=== PATIENT | female | born 1995 | race Caucasian/White ===

== ENCOUNTER 2019-07-22 13:15 | Observation (INO) | payer OTHER ==
[~2019-07-22] VITALS: Ht 1.5 cm; Wt 72.6 kg
[2019-07-22] MEDS ORDERED: PREN-380 PO (14:27)
[2019-07-22] MEDS ORDERED: BETAMETH ACET/BETAMETH NA PH 30 MG/5 ML VIAL IM PRN (14:30)
[2019-07-22] MEDS ORDERED: LACTATED RINGERS 1,000 ML IV SCH (14:30)
[2019-07-22] MEDS: TERBUTALINE 1 MG/ML VIAL SUBQ SCH ×2 (15:50→16:51)
[2019-07-22] MEDS ORDERED: MORPHINE SULFATE 2 MG/ML SYR IVP SCH (18:35)
[2019-07-22] MEDS ORDERED: FERR-252 PO (18:42)
[2019-07-22] MEDS ORDERED: CALC-577 PO (18:42)
== END 2019-07-22 20:20 | disposition home or self-care (01) ==
LOC: MLD 13:15
PROVIDERS: ADMIT Obstetrics & Gynecology; ATTEND Obstetrics & Gynecology
DX: O26.893 Other specified pregnancy related conditions, third trimester (principal); R10.9 Unspecified abdominal pain; Z3A.28 28 weeks gestation of pregnancy
CPT/HCPCS: 36415; 76805; 82731; 96372; G0378; J0702; J3105; J7120; Q0092

== ENCOUNTER 2019-07-23 16:33 | Observation (INO) | payer OTHER ==
[~2019-07-23] VITALS: Ht 157.5 cm; Wt 69.9 kg
[~2019-07-23 16:33] MED LIST: CALC-577 PO; FERR-252 PO; PREN-380 PO
[2019-07-23 17:20] VITALS: BP 102/65
[2019-07-23] MEDS ORDERED: BETAMETH ACET/BETAMETH NA PH 30 MG/5 ML VIAL IM ONE ×2 (17:25→17:40)
== END 2019-07-23 18:30 | disposition home or self-care (01) ==
LOC: MLD 16:33
PROVIDERS: ADMIT Obstetrics & Gynecology; ATTEND Obstetrics & Gynecology
DX: O26.893 Other specified pregnancy related conditions, third trimester (principal); R10.9 Unspecified abdominal pain; Z3A.29 29 weeks gestation of pregnancy
CPT/HCPCS: 81000; 96372; G0378; J0702

== ENCOUNTER 2019-08-24 23:37 | Observation (INO) | payer MEDICAID ==
[~2019-08-24] VITALS: Ht 152 cm; Wt 71.7 kg
[2019-08-25 00:18] VITALS: BP 95/68
[2019-08-25] MEDS ORDERED: TERBUTALINE 1 MG/ML VIAL SUBQ SCH (01:05)
[2019-08-25] MEDS ORDERED: MORPHINE SULFATE 4 MG/ML SYR IVP PRN (01:05)
[2019-08-25] MEDS ORDERED: VITA1TAB44 PO (01:11)
[2019-08-25] MEDS: LACTATED RINGERS 1,000 ML IV SCH ×2 (01:28→08:41)
[2019-08-25] MEDS ORDERED: TERBUTALINE 1 MG/ML VIAL SUBQ ONE (01:30)
[2019-08-25] MEDS ORDERED: MORPHINE SULFATE 10 MG/ML VIAL ONE (06:09)
[2019-08-25 06:15] VITALS: BP 94/63
--- NOTE | 2019-08-25 09:00 | NUR ---
PATIENT HAS BEEN SCREENED AND CATEGORIZED LOW NUTRITION RISK. PATIENT WILL BE SEEN WITHIN 7 DAYS OF ADMISSION. 08/31/[address]
[2019-08-25] MEDS ORDERED: ONDANSETRON 4 MG/2 ML VIAL IVP PRN (10:45)
== END 2019-08-25 16:45 | disposition home or self-care (01) ==
LOC: MLD 23:37 → MFCC 08-25 10:01
PROVIDERS: ADMIT Obstetrics & Gynecology; ATTEND Obstetrics & Gynecology
DX: O62.9 Abnormality of forces of labor, unspecified (principal); Z3A.33 33 weeks gestation of pregnancy
CPT/HCPCS: 81000; 96372; 96374; G0378; J2270; J2405; J7120; J3105

== ENCOUNTER 2019-09-03 22:45 | Inpatient (IN) | payer MEDICAID ==
[~2019-09-03] VITALS: Ht 149.9 cm; Wt 72.6 kg
[~2019-09-03 22:45] MED LIST changes: -CALC-577 PO; +VITA1TAB44 PO
[2019-09-03] MEDS ORDERED: BETAMETH ACET/BETAMETH NA PH 30 MG/5 ML VIAL IM SCH (23:40)
[2019-09-03] MEDS ORDERED: MORPHINE SULFATE 4 MG/ML SYR IVP PRN (23:40)
[2019-09-03] MEDS ORDERED: TERBUTALINE 1 MG/ML VIAL SUBQ SCH (23:40)
[2019-09-04] MEDS ORDERED: BETAMETH ACET/BETAMETH NA PH 30 MG/5 ML VIAL IM ONE (00:32)
[2019-09-04] MEDS ORDERED: TERBUTALINE 1 MG/ML VIAL SUBQ ONE (00:32)
[2019-09-04 02:51] VITALS: BP 100/59
[2019-09-04] MEDS ORDERED: NIFEdipine 10 MG CAPLF ONE (06:55)
[2019-09-04] MEDS: NIFEdipine 10 MG CAPLF PO SCH ×7 (06:59→20:10)
[2019-09-04] MEDS: LACTATED RINGERS 1,000 ML IV SCH ×2 (07:58→15:56)
--- NOTE | 2019-09-04 08:52 | NUR ---
PATIENT HAS BEEN SCREENED AND CATEGORIZED LOW NUTRITION RISK. PATIENT WILL BE SEEN WITHIN 7 DAYS OF ADMISSION. 09/10/[address]
[2019-09-04] MEDS ORDERED: MORPHINE SULFATE 10 MG/ML VIAL ONE (12:54)
[2019-09-04 13:03] VITALS: BP 108/60
[2019-09-04 17:07] LABS: BASOPHILS % (AUTO) 0.6 % (0.0-2.0); HEMATOCRIT 30.2 % (36-48); HEMOGLOBIN 9.9 g/dL (12.0-16.0); LYMPHOCYTES # (AUTO) 1.2 K/uL (2.5-16.5); LYMPHOCYTES % (AUTO) 14.5 % (20.5-51.1); MEAN CORPUSCULAR HEMOGLOBIN 27 pg (27-31); MEAN CORPUSCULAR HGB CONC 33 g/dL (33-37); MEAN CORPUSCULAR VOLUME 82.6 fL (80-94); MONOCYTES # (AUTO) 0.3 K/uL (0.8-1.0); MONOCYTES % (AUTO) 4.2 % (1.7-9.3); NEUTROPHILS # (AUTO) 6.4 K/uL (1.8-7.7); NEUTROPHILS % (AUTO) 80.7 % (42.2-75.2); PLATELET COUNT (AUTO) 251 K/uL (140-450); RED BLOOD CELL COUNT(AUTO) 3.66 MIL/uL (4.20-5.40); RED CELL DISTRIBUTION WIDTH 15.6 % (11.6-13.7)
[2019-09-04 20:37] LABS: BARBITURATE, URINE NEGATIVE ng/ml (NEG <=200); BENZODIAZEPINE, URINE NEGATIVE ng/mL (NEG <=200); CANNABINOID, URINE NEGATIVE ng/mL (NEG <=50); COCAINE, URINE NEGATIVE ng/mL (NEG <=300); OPIATE, URINE POSITIVE ng/mL (NEG <=2000); PHENCYCLIDINE SCREEN,URINE NEGATIVE ng/mL (NEG <=25)
[2019-09-05] MEDS: NIFEdipine 10 MG CAPLF PO SCH ×2 (00:10→04:11)
[2019-09-05] MEDS: LACTATED RINGERS 1,000 ML IV SCH ×2 (01:38→10:36)
[2019-09-05 10:40] LABS: APPEARANCE,URINE CLEAR (CLEAR); BILIRUBIN,URINE NEGATIVE (NEGATIVE); BLOOD, URINE NEGATIVE (NEGATIVE); COLOR,URINE YELLOW (YELLOW); LEUKOCYTE ESTERASE ,URINE NEGATIVE (NEGATIVE); NITRITE, URINE NEGATIVE (NEGATIVE); UGLUCOSE NEGATIVE (NEGATIVE)
[2019-09-05 11:13] LABS: BARBITURATE, URINE NEGATIVE ng/ml (NEG <=200); BENZODIAZEPINE, URINE NEGATIVE ng/mL (NEG <=200); CANNABINOID, URINE NEGATIVE ng/mL (NEG <=50); COCAINE, URINE NEGATIVE ng/mL (NEG <=300); OPIATE, URINE POSITIVE ng/mL (NEG <=2000); PHENCYCLIDINE SCREEN,URINE NEGATIVE ng/mL (NEG <=25)
[2019-09-05] MEDS ORDERED: MORPHINE PRES FREE 10 MG/10 ML AMP IV ONE (13:39)
[2019-09-05] MEDS ORDERED: ONDANSETRON 4 MG/2 ML VIAL ONE ×2 (13:40→14:11)
[2019-09-05] MEDS ORDERED: OXYTOCIN 10 UNITS/ML VIAL ONE (14:09)
[2019-09-05] MEDS ORDERED: diphenhydrAMINE 50 MG/ML VIAL ONE (14:11)
[2019-09-05] MEDS ORDERED: OXYTOCIN 20 UNITS in LACTATED RINGERS 1,000 ML IV SCH ×2 (14:23→15:47)
[2019-09-05] MEDS ORDERED: IBUPROFEN 800 MG TAB PO PRN (14:25)
[2019-09-05] MEDS ORDERED: TEMAZEPAM 15 MG CAP PO PRN (14:25)
[2019-09-05] MEDS ORDERED: METHYLERGONOVINE 0.2 MG/ML AMP IM PRN (14:25)
[2019-09-05] MEDS ORDERED: KETOROLAC 30 MG/ML VIAL IVP PRN ×2 (14:25→15:50)
[2019-09-05] MEDS ORDERED: OXYTOCIN 20 UNITS/LR PREMIX 1,000 ML IV ONE ×2 (14:33→22:00)
[2019-09-05] MEDS ORDERED: diphenhydrAMINE 50 MG/ML VIAL IVP PRN (15:50)
[2019-09-05] MEDS ORDERED: ONDANSETRON 4 MG/2 ML VIAL IVP PRN (15:50)
[2019-09-05] MEDS ORDERED: diphenhydrAMINE 50 MG/ML VIAL IVP SCH (15:50)
[2019-09-05] MEDS ORDERED: NALOXONE 0.4 MG/ML VIAL IVP PRN ×2 (15:50)
[2019-09-05] MEDS: SENNA 8.6 MG TAB PO SCH (21:00)
[2019-09-05] MEDS ORDERED: DOCUSATE SOD/SENNA 50/8.6 MG 1 TAB PO SCH (21:00)
[2019-09-05] MEDS ORDERED: OXYTOCIN 20 UNITS/LR PREMIX 1,000 ML IV SCH (22:40)
[2019-09-06 05:53] LABS: BASOPHILS % (AUTO) 0.1 % (0.0-2.0); HEMATOCRIT 27.3 % (36-48); LYMPHOCYTES # (AUTO) 1.8 K/uL (2.5-16.5); LYMPHOCYTES % (AUTO) 18.8 % (20.5-51.1); MEAN CORPUSCULAR HEMOGLOBIN 27 pg (27-31); MEAN CORPUSCULAR HGB CONC 33 g/dL (33-37); MEAN CORPUSCULAR VOLUME 82.5 fL (80-94); MONOCYTES # (AUTO) 0.8 K/uL (0.8-1.0); NEUTROPHILS # (AUTO) 7.1 K/uL (1.8-7.7); NEUTROPHILS % (AUTO) 73.1 % (42.2-75.2); PLATELET COUNT (AUTO) 226 K/uL (140-450); RED BLOOD CELL COUNT(AUTO) 3.31 MIL/uL (4.20-5.40); RED CELL DISTRIBUTION WIDTH 15.4 % (11.6-13.7); WHITE BLOOD COUNT (AUTO) 9.7 K/uL (4.8-10.8)
[2019-09-06] MEDS: oxyCODONE/APAP 5/325 MG 1 TAB TAB PO PRN ×2 (12:44→20:09)
[2019-09-06] MEDS: SENNA 8.6 MG TAB PO SCH (20:09)
[2019-09-07] MEDS ORDERED: CAMERA MC ONE (02:06)
[2019-09-07] MEDS: SIMETHICONE 80 MG TAB.CHEW PO PRN ×2 (09:23→17:54)
[2019-09-07] MEDS: SODIUM PHOSPHATE 118 ML ENEM RC SCH (09:28)
[2019-09-07] MEDS: oxyCODONE/APAP 5/325 MG 1 TAB TAB PO PRN ×2 (10:44→17:54)
[2019-09-07] MEDS: SENNA 8.6 MG TAB PO SCH (21:02)
[2019-09-08] MEDS ORDERED: CAMERA MC ONE (03:03)
[2019-09-08] MEDS: oxyCODONE/APAP 5/325 MG 1 TAB TAB PO PRN ×2 (03:20→09:40)
[2019-09-08] MEDS: SODIUM PHOSPHATE 118 ML ENEM RC SCH (09:00)
== END 2019-09-08 17:00 | disposition home or self-care (01) | DRG 540 ==
LOC: MFCC 22:45 → OBSVTOIN 09-05 11:42 → MFCC 09-05 13:15
PROVIDERS: ADMIT Obstetrics & Gynecology; ATTEND Obstetrics & Gynecology
PROC: 3E0234Z Introduction of Serum, Toxoid and Vaccine into Muscle, Percutaneous Approach (ICD-10-PCS; 2019-09-05)
PROC: 10D00Z1 Extraction of Products of Conception, Low, Open Approach (ICD-10-PCS; principal; 2019-09-05 13:15)
DX: O60.14X0 Preterm labor third trimester with preterm delivery third trimester, not applicable or unspecified (principal); O34.211 Maternal care for low transverse scar from previous cesarean delivery; Z37.0 Single live birth; Z3A.35 35 weeks gestation of pregnancy; Z23 Encounter for immunization
CPT/HCPCS: G0378 ×37; 36415; 51702; 80305; 85025; 86592; 86886; 86900; 86901; 90715; J0690; J0702; J1200; J1885; J2270; J2405; J2590; J3105; J7060; J7120

== ENCOUNTER 2019-12-12 21:59 | Emergency (ER) | payer MEDICAID ==
[~2019-12-12] VITALS: Ht 132.1 cm; Wt 65.8 kg
[2019-12-12 22:04] VITALS: BP 95/61
--- NOTE | 2019-12-12 22:17 | NUR ---
PT AMBULATED TO BED 11.
--- NOTE | 2019-12-12 22:28 | NUR ---
24 year old female presents to ed with c/o n/v x 1 day, headache & dizziness x 15 days, c/o epigastric pain x 2 days. denies any blurry vision. pt is a/o x 4, gcs 15. denies LOC. cbl sounds. respirations even and unlabored. denies sob/cough .abdomen soft and nontender. bowel sounds normoactive on all quadrants. denies any diarrhea. pt is ambulatory. awaiting MSE. connected to cardiac monitoring, pulse oximetry monitoring. pmhx: denies nka
--- NOTE | 2019-12-12 22:38 | NUR ---
Dr. Guerrero at bedside assessing pt.
[2019-12-12] MEDS ORDERED: ONDANSETRON 4 MG/2 ML VIAL IVP ONE (22:45)
[2019-12-12] MEDS ORDERED: IBUPROFEN 600 MG TAB PO ONE (22:50)
[2019-12-12 23:33] VITALS: BP 101/53
--- NOTE | 2019-12-12 23:54 | NUR ---
Patient discharged with v/s stable. Written and verbal after care instructions given and explained. Patient alert, oriented and verbalized understanding of instructions. Ambulatory with steady gait. All questions addressed prior to discharge. ID band removed. Patient advised to follow up with PMD. Rx of zofran and motrin given. Patient educated on indication of medication including possible reaction and side effects. Opportunity to ask questions provided and answered.
== END 2019-12-12 23:54 | disposition home or self-care (01) ==
LOC: MED 21:59
DX: B34.9 Viral infection, unspecified (principal); E86.0 Dehydration; R11.2 Nausea with vomiting, unspecified; Z79.899 Other long term (current) drug therapy
CPT/HCPCS: 81002; 81025; 96374; 99283; J2405

== ENCOUNTER 2019-12-20 18:55 | Emergency (ER) | payer MEDICAID ==
[~2019-12-20] VITALS: Ht 154.9 cm; Wt 66.2 kg
[2019-12-20 18:57] VITALS: BP 107/62
--- NOTE | 2019-12-20 19:13 | NUR ---
24 Y/O FEMALE C/O LOWER ABDOMINAL PAIN. STATES 9/10 PAIN. +N/V. SEEN HERE 1 WEEK AGO SAME S/S. DENIES DYSURIA. ABD SOFT, TENDER TO TOUCH. MED HX: DENIES NKA
--- NOTE | 2019-12-20 19:33 | NUR ---
Dr. Cordoba examining patient.
[2019-12-20] MEDS ORDERED: KETOROLAC 30 MG/ML VIAL ONE (19:43)
[2019-12-20] MEDS ORDERED: KETOROLAC 30 MG/ML VIAL IM ONE (19:45)
--- NOTE | 2019-12-20 20:13 | NUR ---
Ultrasound at bedside.
[2019-12-20 21:56] VITALS: BP 104/58
--- NOTE | 2019-12-20 21:56 | NUR ---
Patient discharged with v/s stable. Written and verbal after care instructions given and explained. Patient alert, oriented and verbalized understanding of instructions. Ambulatory with steady gait. All questions addressed prior to discharge. ID band removed. Patient advised to follow up with PMD. Rx of tramadol, motrin given. Patient educated on indication of medication including possible reaction and side effects. Opportunity to ask questions provided and answered.
== END 2019-12-20 21:56 | disposition home or self-care (01) ==
LOC: MED 18:55
DX: N83.201 Unspecified ovarian cyst, right side (principal); Z79.899 Other long term (current) drug therapy; Z98.890 Other specified postprocedural states
CPT/HCPCS: 76856; 96372; 99284; J1885; Q0092

== ENCOUNTER 2019-12-22 18:11 | Emergency (ER) | payer MEDICAID ==
[~2019-12-22] VITALS: Ht 154.9 cm; Wt 67.1 kg
[2019-12-22 18:18] VITALS: BP 107/62
--- NOTE | 2019-12-22 18:32 | NUR ---
W/C TO BED 4
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
[2019-12-22] MEDS ORDERED: NACL 0.9% 1,000 ML IV SCH (18:58)
[2019-12-22] MEDS ORDERED: ONDANSETRON 4 MG/2 ML VIAL IVP ONE (19:00)
--- NOTE | 2019-12-22 19:05 | NUR ---
RECEIVED REPORT FROM PENNY CHAVARRIA
--- NOTE | 2019-12-22 19:26 | NUR ---
LAB AT BEDSIDE DRAWING BLOOD AND COLLECTED URINE
[2019-12-22] MEDS ORDERED: PROCHLORPERAZINE 10 MG/2 ML VIAL IM ONE (19:35)
[2019-12-22] MEDS ORDERED: MECLIZINE 25 MG TAB PO ONE (19:35)
[2019-12-22 19:37] LABS: BASOPHILS % (AUTO) 0.4 % (0.0-2.0); EOSINOPHILS # (AUTO) 0.1 K/uL (0-0.4); EOSINOPHILS % (AUTO) 0.9 % (0.0-4.0); HEMATOCRIT 34.6 % (36-48); HEMOGLOBIN 11.2 g/dL (12.0-16.0); LYMPHOCYTES # (AUTO) 1.8 K/uL (2.5-16.5); LYMPHOCYTES % (AUTO) 19.3 % (20.5-51.1); MEAN CORPUSCULAR HEMOGLOBIN 27 pg (27-31); MEAN CORPUSCULAR HGB CONC 32 g/dL (33-37); MONOCYTES # (AUTO) 0.7 K/uL (0.8-1.0); MONOCYTES % (AUTO) 7.2 % (1.7-9.3); NEUTROPHILS # (AUTO) 6.8 K/uL (1.8-7.7); NEUTROPHILS % (AUTO) 72.2 % (42.2-75.2); PLATELET COUNT (AUTO) 319 K/uL (140-450); RED BLOOD CELL COUNT(AUTO) 4.17 MIL/uL (4.20-5.40); RED CELL DISTRIBUTION WIDTH 17.1 % (11.6-13.7); WHITE BLOOD COUNT (AUTO) 9.5 K/uL (4.8-10.8)
[2019-12-22 19:38] LABS: APPEARANCE,URINE HAZY (CLEAR); BILIRUBIN,URINE NEGATIVE (NEGATIVE); BLOOD, URINE NEGATIVE (NEGATIVE); COLOR,URINE YELLOW (YELLOW); LEUKOCYTE ESTERASE ,URINE NEGATIVE (NEGATIVE); NITRITE, URINE NEGATIVE (NEGATIVE); UGLUCOSE NEGATIVE (NEGATIVE)
[2019-12-22 19:50] LABS: ANION GAP 14.3 (8-16); CARBON DIOXIDE 25.8 mmol/L (21-32); CREATININE 0.5 mg/dL (0.6-1.3); POTASSIUM 4.1 mmol/L (3.5-5.1); TOTAL BILIRUBIN 0.3 mg/dL (0.0-1.0)
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
--- NOTE | 2019-12-22 21:30 | NUR ---
PT WAS TOLD TO RETURN IN 48 HRS FOR REDRAW OF SERUM TO SEE IF IT IS GOING DOWN.
[2019-12-22 21:44] VITALS: BP 105/62
--- NOTE | 2019-12-22 21:45 | NUR ---
Patient discharged with v/s stable. Written and verbal after care instructions given and explained. Patient alert, oriented and verbalized understanding of instructions. Ambulatory with steady gait. All questions addressed prior to discharge. ID band removed. Patient advised to follow up with PMD. Rx of ANTIVERT AND ZOFRAN given. Patient educated on indication of medication including possible reaction and side effects. Opportunity to ask questions provided and answered.
== END 2019-12-22 21:45 | disposition home or self-care (01) ==
LOC: MED 18:11
DX: R42 Dizziness and giddiness (principal); R11.0 Nausea; Z79.899 Other long term (current) drug therapy
CPT/HCPCS: 36415; 80053; 81003; 83690; 84702; 84703; 85025; 96361; 96372; 96374; 99284; J0780; J2405; J7030; J8597

== ENCOUNTER 2019-12-25 20:07 | Emergency (ER) | payer MEDICAID ==
[~2019-12-25] VITALS: Ht 151.1 cm; Wt 66.7 kg
[2019-12-25 20:15] VITALS: BP 102/60
--- NOTE | 2019-12-25 20:20 | NUR ---
Admitted a 24-year-old Female who presents to the ED for an evaluation of right lower abdominal pain x 4 days. The abdominal pain is rated 5/10 intensity. Otherwise, the patient denies fever, chills, nausea, vomiting, or any other complaints. Per pt she had 3 months ago. Last LMP August 2019. ALLERGY: NKDA PMH: 3 MONTHS AGO
--- NOTE | 2019-12-25 20:41 | NUR ---
Dr. Guerrero examining patient.
[2019-12-25 21:11] LABS: APPEARANCE,URINE HAZY (CLEAR); BILIRUBIN,URINE NEGATIVE (NEGATIVE); BLOOD, URINE NEGATIVE (NEGATIVE); COLOR,URINE YELLOW (YELLOW); LEUKOCYTE ESTERASE ,URINE NEGATIVE (NEGATIVE); NITRITE, URINE NEGATIVE (NEGATIVE); PH,URINE 7.5 (5.0-9.0); UGLUCOSE NEGATIVE (NEGATIVE)
[2019-12-25 21:12] LABS: BASOPHILS % (AUTO) 0.3 % (0.0-2.0); EOSINOPHILS # (AUTO) 0.2 K/uL (0-0.4); EOSINOPHILS % (AUTO) 2.4 % (0.0-4.0); HEMATOCRIT 34.9 % (36-48); HEMOGLOBIN 11.4 g/dL (12.0-16.0); LYMPHOCYTES # (AUTO) 2.1 K/uL (2.5-16.5); LYMPHOCYTES % (AUTO) 26.5 % (20.5-51.1); MEAN CORPUSCULAR HEMOGLOBIN 27 pg (27-31); MEAN CORPUSCULAR HGB CONC 33 g/dL (33-37); MEAN CORPUSCULAR VOLUME 82.3 fL (80-94); MONOCYTES # (AUTO) 0.7 K/uL (0.8-1.0); MONOCYTES % (AUTO) 8.6 % (1.7-9.3); NEUTROPHILS # (AUTO) 4.8 K/uL (1.8-7.7); NEUTROPHILS % (AUTO) 62.2 % (42.2-75.2); PLATELET COUNT (AUTO) 333 K/uL (140-450); RED BLOOD CELL COUNT(AUTO) 4.24 MIL/uL (4.20-5.40); RED CELL DISTRIBUTION WIDTH 17.1 % (11.6-13.7); WHITE BLOOD COUNT (AUTO) 7.8 K/uL (4.8-10.8)
[2019-12-25 21:24] LABS: ALBUMIN 3.8 g/dL (3.4-5.0); ANION GAP 11.3 (8-16); CARBON DIOXIDE 27.5 mmol/L (21-32); CREATININE 0.5 mg/dL (0.6-1.3); POTASSIUM 3.8 mmol/L (3.5-5.1); TOTAL BILIRUBIN 0.2 mg/dL (0.0-1.0)
--- NOTE | 2019-12-25 21:31 | NUR ---
ULTRASOUND AT THE BEDSIDE
--- NOTE | 2019-12-25 22:00 | NUR ---
PT LAYING IN BED ON HER PHONE. NO COMPLAIN AT THIS TIME.
[2019-12-25 23:30] VITALS: BP 96/56
== END 2019-12-25 23:30 | disposition home or self-care (01) ==
LOC: MED 20:07
DX: O26.891 Other specified pregnancy related conditions, first trimester (principal); Z79.899 Other long term (current) drug therapy; Z98.890 Other specified postprocedural states
CPT/HCPCS: 36415; 76817; 80053; 81003; 81025; 83690; 84702; 85025; 86140; 99284; Q0092

== ENCOUNTER 2020-03-01 13:29 | Emergency (ER) | payer MEDICAID ==
[~2020-03-01] VITALS: Ht 149.9 cm; Wt 64.6 kg
[2020-03-01 13:30] VITALS: BP 112/61
--- NOTE | 2020-03-01 13:48 | NUR ---
24 y/o A&OX4 female c/o lower abdominal pain 12/24 describes as sharp constant X1day radiates from abdomen to lower back. Pt states she fell yesterday in the shower, denies head trauma, patient is 19 weeks . The LMP is 10/26/19 with BRANDON 07/26/20. Pt denies fever, +chills, dizziness+N/[id number]. Pt states she took tynenol X2 last night with no relief. Pt does not have an OB, has not taken prenatals. [id number] (1stillborn) Denies PMH Rx: Denies prenatals
--- NOTE | 2020-03-01 13:49 | NUR ---
Ambulated to bed 7
--- NOTE | 2020-03-01 13:50 | NUR ---
Pt ambulated to bathroom for UA collection.
--- NOTE | 2020-03-01 13:52 | NUR ---
evaluating the pt at this time.
--- NOTE | 2020-03-01 14:15 | NUR ---
Dr. Eagle at pt bedside for further evaluation.
[2020-03-01] MEDS ORDERED: ACETAMINOPHEN 325 MG TAB PO ONE (14:20)
[2020-03-01] MEDS ORDERED: ONDANSETRON 4 MG ODT PO ONE (14:20)
--- NOTE | 2020-03-01 14:27 | NUR ---
U/S tech at pt bedside for transvaginal examination.
[2020-03-01 16:08] VITALS: BP 112/61
--- NOTE | 2020-03-01 16:08 | NUR ---
Patient discharged with v/s stable. Written and verbal after care instructions given and explained. Patient alert, oriented and verbalized understanding of instructions. Ambulatory with steady gait. All questions addressed prior to discharge. ID band removed. Patient advised to follow up with PMD. Rx of diclegis 10mg 2 tabs at nnight PRN given. Patient educated on indication of medication including possible reaction and side effects. Opportunity to ask questions provided and answered.
== END 2020-03-01 16:08 | disposition home or self-care (01) ==
LOC: MED 13:29
DX: O26.892 Other specified pregnancy related conditions, second trimester (principal); S39.92XA Unspecified injury of lower back, initial encounter; S93.401A Sprain of unspecified ligament of right ankle, initial encounter; Z3A.15 15 weeks gestation of pregnancy; Z79.899 Other long term (current) drug therapy; Z90.49 Acquired absence of other specified parts of digestive tract; Z98.890 Other specified postprocedural states; X50.1XXA Overexertion from prolonged static or awkward postures, initial encounter; Y93.89 Activity, other specified; Y92.89 Other specified places as the place of occurrence of the external cause; Y99.8 Other external cause status
CPT/HCPCS: 76805; 81002; 81025; 99284; Q0162

== ENCOUNTER 2020-03-07 20:08 | Emergency (ER) | payer MEDICAID ==
[~2020-03-07] VITALS: Ht 157.5 cm; Wt 65.3 kg
[2020-03-07 20:18] VITALS: BP 114/66
--- NOTE | 2020-03-07 22:29 | NUR ---
Patient being evaluated by physician at tent.
[2020-03-07] MEDS ORDERED: KETOROLAC 60 MG/2 ML VIAL IM ONE (22:35)
[2020-03-07] MEDS ORDERED: ACETAMINOPHEN EXTRA STRENGTH 500 MG TAB PO ONE (22:45)
--- NOTE | 2020-03-07 22:45 | NUR ---
medicated as per Ermds order, tolerated well.
[2020-03-07 23:00] VITALS: BP 110/65
--- NOTE | 2020-03-07 23:00 | NUR ---
Patient discharged with v/s stable. Written and verbal after care instructions given and explained. Patient alert, oriented and verbalized understanding of instructions. Ambulatory with steady gait. All questions addressed prior to discharge. ID band removed. Patient advised to follow up with PMD. Rx of tylenol 500mg given. Patient educated on indication of medication including possible reaction and side effects. Opportunity to ask questions provided and answered.
== END 2020-03-07 23:00 | disposition home or self-care (01) ==
LOC: MED 20:08
DX: B34.9 Viral infection, unspecified (principal); Z79.899 Other long term (current) drug therapy
CPT/HCPCS: 99282; J1885

== ENCOUNTER 2020-03-29 08:14 | Emergency (ER) | payer MEDICAID, OTHER ==
[~2020-03-29] VITALS: Ht 157.5 cm; Wt 65.8 kg
[2020-03-29 08:33] VITALS: BP 95/50
--- NOTE | 2020-03-29 08:35 | NUR ---
Eve love in ED - 03/29/20 at 0903 by [email or web address] Pt taken to ER bed 11.
--- NOTE | 2020-03-29 08:35 | NUR ---
Pt taken to ER bed 12.
--- NOTE | 2020-03-29 08:54 | NUR ---
24 Y/O PT C/O PROGRESSIVELY WORSENING CONSTANT RUQ ABDOMINAL PAIN, CHILLS, AND WEAKNESS FOR 3 WEEKS. PT WAS SEEN IN [facility] LAST WEEK AND TESTED FOR COVID WITH NEGATIVE RESULT. DENIES FEVER, COUGH, SOB, N/V/D, DIZZINES/FEVER/CHILLS. PT ALSO REPORTS 17 WKS OF , LAST OB VISIT WAS LAST WEEK. A0 PMH: DENIES NKA
[2020-03-29] MEDS ORDERED: MORPHINE SULFATE 4 MG/ML SYR IVP ONE (09:35)
[2020-03-29] MEDS ORDERED: ONDANSETRON 4 MG/2 ML VIAL IVP ONE (09:35)
[2020-03-29] MEDS ORDERED: NACL 0.9% 1,000 ML IV SCH (09:35)
--- NOTE | 2020-03-29 09:43 | NUR ---
IV established to left hand 22G, good blood return.
[2020-03-29 10:07] LABS: HEMATOCRIT 27.5 % (36-48); HEMOGLOBIN 9.1 g/dL (12.0-16.0); MEAN CORPUSCULAR VOLUME 80.1 fL (80-94); RED BLOOD CELL COUNT(AUTO) 3.44 MIL/uL (4.20-5.40); WHITE BLOOD COUNT (AUTO) 11.1 K/uL (4.8-10.8)
[2020-03-29 10:08] LABS: MEAN CORPUSCULAR HEMOGLOBIN 27 pg (27-31); MEAN CORPUSCULAR HGB CONC 33 g/dL (33-37); PLATELET COUNT (AUTO) 347 K/uL (140-450); RED CELL DISTRIBUTION WIDTH 16.2 % (11.6-13.7)
[2020-03-29 10:09] LABS: BASOPHILS % (AUTO) 0.1 % (0.0-2.0); EOSINOPHILS % (AUTO) 0.2 % (0.0-4.0); LYMPHOCYTES % (AUTO) 9.1 % (20.5-51.1); MONOCYTES # (AUTO) 1.2 K/uL (0.8-1.0); MONOCYTES % (AUTO) 10.7 % (1.7-9.3); NEUTROPHILS # (AUTO) 8.9 K/uL (1.8-7.7); NEUTROPHILS % (AUTO) 79.9 % (42.2-75.2)
[2020-03-29 10:18] LABS: ANION GAP 13.6 (8-16); CARBON DIOXIDE 23.9 mmol/L (21-32); CREATININE 0.4 mg/dL (0.6-1.3); POTASSIUM 3.5 mmol/L (3.5-5.1); TOTAL BILIRUBIN 0.4 mg/dL (0.0-1.0)
[2020-03-29 10:19] LABS: ALBUMIN 2.3 g/dL (3.4-5.0)
[2020-03-29 11:09] LABS: APPEARANCE,URINE YELLO (CLEAR); BILIRUBIN,URINE 1+ (NEGATIVE); BLOOD, URINE TRACE (NEGATIVE); COLOR,URINE CLEAR (YELLOW); LEUKOCYTE ESTERASE ,URINE NEGATIVE (NEGATIVE); NITRITE, URINE NEGATIVE (NEGATIVE); UGLUCOSE NEGATIVE (NEGATIVE)
--- NOTE | 2020-03-29 12:07 | NUR ---
Patient discharged with v/s stable. Written and verbal after care instructions given and explained. Patient alert, oriented and verbalized understanding of instructions. Ambulatory with steady gait. All questions addressed prior to discharge. ID band removed. Patient advised to follow up with PMD. Rx of Zofran 4mg ODT given. Patient educated on indication of medication including possible reaction and side effects. Opportunity to ask questions provided and answered.
--- NOTE | 2020-03-29 12:07 | NUR ---
IV removed 2x2 gauze placed to IV site, Bleeding controlled
[2020-03-29 12:08] VITALS: BP 100/64
== END 2020-03-29 12:07 | disposition home or self-care (01) ==
LOC: MED 08:14
DX: O26.892 Other specified pregnancy related conditions, second trimester (principal); R10.9 Unspecified abdominal pain; Z3A.17 17 weeks gestation of pregnancy; Z90.49 Acquired absence of other specified parts of digestive tract; Z98.890 Other specified postprocedural states; Z79.899 Other long term (current) drug therapy
CPT/HCPCS: 36415; 76705; 80053; 81001; 81025; 83690; 85025; 96361; 96374; 96375; 99284; G0480; J2270; J2405; J7030

== ENCOUNTER 2020-03-30 19:12 | Emergency (ER) | payer OTHER ==
[~2020-03-30] VITALS: Ht 154.9 cm; Wt 65.8 kg
[2020-03-30 19:35] VITALS: BP 88/60
--- NOTE | 2020-03-30 19:38 | NUR ---
TO LOBBY A/W BED AMBULATORY
--- NOTE | 2020-03-30 21:00 | NUR ---
SEEN AND EXAMINED BY DONY WITH ORDERS AND CARRIED OUT
[2020-03-30] MEDS ORDERED: HYDROcodone/APAP 5/325 MG 1 TAB TAB PO ONE (21:15)
[2020-03-30] MEDS ORDERED: NACL 0.9% 1,000 ML IV ONE (21:20)
[2020-03-30 22:26] LABS: BASOPHILS % (AUTO) 0.1 % (0.0-2.0); EOSINOPHILS % (AUTO) 0.4 % (0.0-4.0); HEMOGLOBIN 8.8 g/dL (12.0-16.0); LYMPHOCYTES # (AUTO) 1.2 K/uL (2.5-16.5); LYMPHOCYTES % (AUTO) 13.2 % (20.5-51.1); MEAN CORPUSCULAR HEMOGLOBIN 27 pg (27-31); MEAN CORPUSCULAR HGB CONC 33 g/dL (33-37); MEAN CORPUSCULAR VOLUME 81.1 fL (80-94); MONOCYTES # (AUTO) 0.8 K/uL (0.8-1.0); MONOCYTES % (AUTO) 8.1 % (1.7-9.3); NEUTROPHILS # (AUTO) 7.3 K/uL (1.8-7.7); NEUTROPHILS % (AUTO) 78.2 % (42.2-75.2); PLATELET COUNT (AUTO) 370 K/uL (140-450); RED BLOOD CELL COUNT(AUTO) 3.33 MIL/uL (4.20-5.40); WHITE BLOOD COUNT (AUTO) 9.3 K/uL (4.8-10.8)
[2020-03-30 22:48] LABS: ALBUMIN 2.3 g/dL (3.4-5.0); ANION GAP 13.1 (8-16); CARBON DIOXIDE 25.6 mmol/L (21-32); CREATININE 0.5 mg/dL (0.6-1.3); POTASSIUM 3.7 mmol/L (3.5-5.1); TOTAL BILIRUBIN 0.3 mg/dL (0.0-1.0)
[2020-03-30 23:05] LABS: APPEARANCE,URINE CLEAR (CLEAR); BILIRUBIN,URINE NEGATIVE (NEGATIVE); BLOOD, URINE NEGATIVE (NEGATIVE); COLOR,URINE YELLOW (YELLOW); LEUKOCYTE ESTERASE ,URINE TRACE (NEGATIVE); NITRITE, URINE NEGATIVE (NEGATIVE); PH,URINE 7.5 (5.0-9.0); UGLUCOSE TRACE (NEGATIVE)
[2020-03-30] MEDS ORDERED: HYDROcodone/APAP 5/325 MG 1 TAB TAB ONE (23:27)
[2020-03-31 00:53] LABS: RBC,URINE 0-5 /HPF (0-5)
[2020-03-31] MEDS ORDERED: NACL 0.9% 1,000 ML IV ONE (01:15)
[2020-03-31 04:50] VITALS: BP 88/60
--- NOTE | 2020-03-31 04:51 | NUR ---
Patient discharged with v/s stable. Written and verbal after care instructions given and explained. Patient alert, oriented and verbalized understanding of instructions. Ambulatory with steady gait. All questions addressed prior to discharge. ID band removed. Patient advised to follow up with PMD. Rx of NORCO AND KEFLEX given. Patient educated on indication of medication including possible reaction and side effects. Opportunity to ask questions provided and answered.
== END 2020-03-31 04:50 | disposition home or self-care (01) ==
LOC: MED 19:12
DX: O23.42 Unspecified infection of urinary tract in pregnancy, second trimester (principal); O26.892 Other specified pregnancy related conditions, second trimester; Z3A.18 18 weeks gestation of pregnancy; Z90.49 Acquired absence of other specified parts of digestive tract; Z98.890 Other specified postprocedural states; Z79.899 Other long term (current) drug therapy
CPT/HCPCS: 36415; 76770; 76805; 80053; 81001; 81025; 83690; 85025; 86900; 86901; 87086; 96360; 99285; J7030

== ENCOUNTER 2020-04-01 16:19 | Emergency (ER) | payer OTHER ==
[~2020-04-01] VITALS: Ht 152.4 cm; Wt 65.8 kg
[2020-04-01 16:32] VITALS: BP 97/57
[2020-04-01] MEDS ORDERED: ACETAMINOPHEN 325 MG TAB PO SCH (16:47)
[2020-04-01] MEDS ORDERED: NACL 0.9% 1,000 ML IV ONE (16:50)
[2020-04-01] MEDS ORDERED: ONDANSETRON 4 MG/2 ML VIAL IVP SCH (16:54)
[2020-04-01] MEDS ORDERED: cefTRIAXone 1,000 MG VIAL ONE (17:11)
--- NOTE | 2020-04-01 17:30 | NUR ---
24 Y/O FEMALE , ABOUT 19 WEEKS . PT PRESENTED TO ED C/O RT FLANK PAIN . PT + N/V/BODY ACHES/ CHILLS & DYSURIA. PT DENIES ANY VAGINAL DISCHARGE , BLEEDING. PT HAS BEEN SEEN FOR THIS ISSUE MULTIPLE TIMES. A/O X 4 .RR EVEN AND UNLABORED. ABD FIRM, ROUND AND NONTENDER TO TOUCH. ACTIVE BOWEL SOUNDS. NO ACUTE DISTRESS NOTED. PMH: DENIES NKA
--- NOTE | 2020-04-01 17:30 | NUR ---
PT PROVIDED URINE CUP FOR ENCOURAGEMENT OF URINE SAMPLE. Addendum: 04/01/20 at 2331 by LORENE Amendment undone in EDM - 04/01/20 at 2335 by LORENE [facility] AT BEDSIDE
[2020-04-01 17:35] LABS: BASOPHILS % (AUTO) 0.3 % (0.0-2.0); EOSINOPHILS % (AUTO) 0.1 % (0.0-4.0); HEMATOCRIT 24.9 % (36-48); HEMOGLOBIN 8.5 g/dL (12.0-16.0); LYMPHOCYTES # (AUTO) 0.9 K/uL (2.5-16.5); LYMPHOCYTES % (AUTO) 8.4 % (20.5-51.1); MEAN CORPUSCULAR HEMOGLOBIN 27 pg (27-31); MEAN CORPUSCULAR HGB CONC 34 g/dL (33-37); MEAN CORPUSCULAR VOLUME 79.5 fL (80-94); MONOCYTES # (AUTO) 0.7 K/uL (0.8-1.0); MONOCYTES % (AUTO) 6.8 % (1.7-9.3); NEUTROPHILS # (AUTO) 9.3 K/uL (1.8-7.7); NEUTROPHILS % (AUTO) 84.4 % (42.2-75.2); PLATELET COUNT (AUTO) 369 K/uL (140-450); RED BLOOD CELL COUNT(AUTO) 3.13 MIL/uL (4.20-5.40); RED CELL DISTRIBUTION WIDTH 15.6 % (11.6-13.7)
--- NOTE | 2020-04-01 18:26 | NUR ---
SHA COVID SWAB COLLECTED AND WALKED TO LAB.
--- NOTE | 2020-04-01 18:29 | NUR ---
PT AMBULATED TO RESTROOM W/ STEADY GAIT.
[2020-04-01] MEDS ORDERED: MORPHINE SULFATE 4 MG/ML SYR IVP STA (19:00)
[2020-04-01] MEDS ORDERED: KETOROLAC 15 MG/ML VIAL IVP STA (19:01)
[2020-04-01] MEDS ORDERED: MORPHINE SULFATE 4 MG/ML SYR IVP ONE (19:30)
[2020-04-01] MEDS ORDERED: KETOROLAC 15 MG/ML VIAL IVP ONE (19:30)
--- NOTE | 2020-04-01 20:00 | NUR ---
Pt sitting in chair. No acute distress. VSS.
[2020-04-01 20:36] LABS: APPEARANCE,URINE CLEAR (CLEAR); COLOR,URINE YELLOW (YELLOW)
[2020-04-01 20:38] LABS: BILIRUBIN,URINE NEGATIVE (NEGATIVE); BLOOD, URINE NEGATIVE (NEGATIVE); LEUKOCYTE ESTERASE ,URINE NEGATIVE (NEGATIVE); NITRITE, URINE NEGATIVE (NEGATIVE); UGLUCOSE NEGATIVE (NEGATIVE)
--- NOTE | 2020-04-01 21:20 | NUR ---
SPOKE W/ [employer] REGARDING PT STATUS.
--- NOTE | 2020-04-01 22:15 | NUR ---
pt sleeping in chair . RR even and unlabored. No acute distress noted.
[2020-04-01] MEDS ORDERED: ONDANSETRON 4 MG/2 ML VIAL IVP STA (22:25)
[2020-04-01] MEDS ORDERED: HYDROcodone/APAP 10/325 MG 1 TAB TAB PO STA (22:25)
--- NOTE | 2020-04-01 23:31 | NUR ---
[facility] AT BEDSIDE
--- NOTE | 2020-04-01 23:41 | NUR ---
Patient to be transferred to [facility]. Is being transferred due to insurance transfer. Receiving facility has accepting physician and available space. ER physician has signed transfer form. Patient or responsible republican has agreed to transfer and signed form. Patient belongings inventoried and will be sent with patient. Copy of nursing notes, lab reports, EKG, Physicians Orders and X-rays to be sent with patient. Report called to Gertrude Crowder RN at receiving facility. [facility] ambulance service has been called for transfer. ETA is 20 - 30 min.
--- NOTE | 2020-04-01 23:42 | NUR ---
PT TAKEN BY [facility] TO [facility] ROOM [id number]
[2020-04-01 23:47] VITALS: BP 94/52
== END 2020-04-01 23:42 | disposition other institution (70) ==
LOC: MED 16:19
DX: O99.891 Other specified diseases and conditions complicating pregnancy (principal); N13.5 Crossing vessel and stricture of ureter without hydronephrosis; R10.9 Unspecified abdominal pain; Z3A.19 19 weeks gestation of pregnancy; Z87.442 Personal history of urinary calculi
CPT/HCPCS: 36415; 74176; 76770; 76815; 81003; 83605; 84702; 85025; 87040; 87086; 87426; 96365; 96375; 96376; 99285; J0696; J1885; J2270; J2405; J7030

== ENCOUNTER 2020-08-11 16:43 | Observation (INO) | payer MEDICAID, SELFPAY ==
[~2020-08-11] VITALS: Ht 152 cm; Wt 69.9 kg
[~2020-08-11 16:43] MED LIST changes: -PREN-380 PO; -VITA1TAB44 PO
[2020-08-11] MEDS ORDERED: ACET-2619 PO (17:18)
[2020-08-11 17:19] VITALS: BP 108/63
== END 2020-08-11 18:25 | disposition home or self-care (01) ==
LOC: MLD 16:43
PROVIDERS: ADMIT Obstetrics & Gynecology; ATTEND Obstetrics & Gynecology
DX: O26.893 Other specified pregnancy related conditions, third trimester (principal); R51.9 Headache, unspecified; R10.9 Unspecified abdominal pain; Z20.822 Contact with and (suspected) exposure to COVID-19; Z3A.37 37 weeks gestation of pregnancy
CPT/HCPCS: 59025; 81000; 87426; G0378

== ENCOUNTER 2020-08-13 18:43 | Inpatient (IN) | payer MEDICAID, SELFPAY ==
[~2020-08-13] VITALS: Ht 152.4 cm; Wt 69.9 kg
[~2020-08-13 18:43] MED LIST changes: +ACET-2619 PO
[2020-08-13 19:28] LABS: HEMOGLOBIN 8.6 g/dL (12.0-16.0); MEAN CORPUSCULAR HEMOGLOBIN 22 pg (27-31); MEAN CORPUSCULAR HGB CONC 31 g/dL (33-37); WHITE BLOOD COUNT (AUTO) 4.1 K/uL (4.8-10.8)
[2020-08-13 19:32] LABS: BASOPHILS % (AUTO) 0.2 % (0.0-2.0); HEMATOCRIT 27.4 % (36-48); LYMPHOCYTES # (AUTO) 1.5 K/uL (2.5-16.5); LYMPHOCYTES % (AUTO) 36.3 % (20.5-51.1); MEAN CORPUSCULAR VOLUME 68.7 fL (80-94); MONOCYTES # (AUTO) 0.3 K/uL (0.8-1.0); MONOCYTES % (AUTO) 7.5 % (1.7-9.3); NEUTROPHILS # (AUTO) 2.2 K/uL (1.8-7.7); PLATELET COUNT (AUTO) 254 K/uL (140-450); RED BLOOD CELL COUNT(AUTO) 3.99 MIL/uL (4.20-5.40); RED CELL DISTRIBUTION WIDTH 20.2 % (11.6-13.7)
[2020-08-13 19:47] LABS: ALBUMIN 2.4 g/dL (3.4-5.0); CARBON DIOXIDE 23.8 mmol/L (21-32); CREATININE 0.5 mg/dL (0.6-1.3); POTASSIUM 3.8 mmol/L (3.5-5.1); TOTAL BILIRUBIN 0.5 mg/dL (0.0-1.0)
[2020-08-16] MEDS ORDERED: METHYLERGONOVINE 0.2 MG/ML AMP IM PRN ×2 (05:55→08:45)
[2020-08-16] MEDS ORDERED: CITRIC ACID/SODIUM CITRATE 30 ML UDC PO SCH (05:55)
[2020-08-16] MEDS: LACTATED RINGERS 1,000 ML IV SCH ×2 (06:45→07:18)
[2020-08-16 07:09] LABS: BILIRUBIN,URINE NEGATIVE (NEGATIVE); BLOOD, URINE NEGATIVE (NEGATIVE); COLOR,URINE YELLOW (YELLOW); NITRITE, URINE NEGATIVE (NEGATIVE); UGLUCOSE NEGATIVE (NEGATIVE)
[2020-08-16 07:19] LABS: APPEARANCE,URINE SLIGHTLY HAZY (CLEAR); RBC,URINE 0-5 /HPF (0-5)
[2020-08-16 07:20] LABS: WBC,URINE 0-5 /HPF (0-5)
[2020-08-16 07:21] LABS: LEUKOCYTE ESTERASE ,URINE 1+ (NEGATIVE)
[2020-08-16] MEDS ORDERED: ceFAZolin 1,000 MG VIAL ONE (07:23)
[2020-08-16] MEDS ORDERED: ONDANSETRON 4 MG/2 ML VIAL ONE (07:56)
[2020-08-16] MEDS ORDERED: ceFAZolin 1,000 MG VIAL IVP ONE (08:00)
[2020-08-16] MEDS ORDERED: OXYTOCIN 20 UNITS in LACTATED RINGERS 1,000 ML IV SCH (08:20)
[2020-08-16] MEDS ORDERED: NALOXONE 0.4 MG/ML VIAL IVP PRN ×2 (08:20)
[2020-08-16] MEDS ORDERED: KETOROLAC 30 MG/ML VIAL IVP PRN (08:20)
--- NOTE | 2020-08-16 08:24 | NUR ---
PATIENT HAS BEEN SCREENED AND CATEGORIZED LOW NUTRITION RISK. PATIENT WILL BE SEEN WITHIN 7 DAYS OF ADMISSION. 08/22/[address]
[2020-08-16] MEDS ORDERED: IBUPROFEN 800 MG TAB PO PRN (08:45)
[2020-08-16] MEDS ORDERED: TEMAZEPAM 15 MG CAP PO PRN (08:45)
[2020-08-16] MEDS: diphenhydrAMINE 50 MG/ML VIAL IVP PRN ×2 (11:14→18:50)
[2020-08-16] MEDS: KETOROLAC 30 MG/ML VIAL IVP PRN (13:46)
[2020-08-16] MEDS: OXYTOCIN 20 UNITS in LACTATED RINGERS 1,000 ML IV SCH ×2 (13:46→22:37)
[2020-08-16] MEDS: DOCUSATE SOD/SENNA 50/8.6 MG 1 TAB PO SCH (21:00)
[2020-08-16] MEDS ORDERED: OXYTOCIN 20 UNITS/LR PREMIX 1,000 ML IV ONE (21:40)
[2020-08-17] MEDS: KETOROLAC 30 MG/ML VIAL IVP PRN (00:29)
[2020-08-17] MEDS ORDERED: CAMERA MC ONE (02:17)
[2020-08-17] MEDS ORDERED: oxyCODONE/APAP 5/325 MG 1 TAB TAB PO PRN (04:00)
[2020-08-17] MEDS ORDERED: OXYTOCIN 20 UNITS/LR PREMIX 1,000 ML IV ONE (05:00)
[2020-08-17] MEDS: OXYTOCIN 20 UNITS in LACTATED RINGERS 1,000 ML IV SCH (05:08)
[2020-08-17 05:37] LABS: BASOPHILS % (AUTO) 0.3 % (0.0-2.0); EOSINOPHILS # (AUTO) 0.1 K/uL (0-0.4); EOSINOPHILS % (AUTO) 0.7 % (0.0-4.0); HEMATOCRIT 24.7 % (36-48); HEMOGLOBIN 7.8 g/dL (12.0-16.0); LYMPHOCYTES # (AUTO) 1.3 K/uL (2.5-16.5); LYMPHOCYTES % (AUTO) 18.6 % (20.5-51.1); MEAN CORPUSCULAR HEMOGLOBIN 21 pg (27-31); MEAN CORPUSCULAR HGB CONC 32 g/dL (33-37); MEAN CORPUSCULAR VOLUME 67.5 fL (80-94); MONOCYTES # (AUTO) 0.4 K/uL (0.8-1.0); MONOCYTES % (AUTO) 6.1 % (1.7-9.3); NEUTROPHILS # (AUTO) 5.4 K/uL (1.8-7.7); NEUTROPHILS % (AUTO) 74.3 % (42.2-75.2); PLATELET COUNT (AUTO) 179 K/uL (140-450); RED BLOOD CELL COUNT(AUTO) 3.66 MIL/uL (4.20-5.40); RED CELL DISTRIBUTION WIDTH 19.9 % (11.6-13.7); WHITE BLOOD COUNT (AUTO) 7.3 K/uL (4.8-10.8)
[2020-08-17] MEDS: SIMETHICONE 80 MG TAB.CHEW PO PRN (09:05)
[2020-08-17] MEDS: oxyCODONE/APAP 5/325 MG 1 TAB TAB PO PRN ×3 (09:05→20:16)
[2020-08-17] MEDS: DOCUSATE SOD/SENNA 50/8.6 MG 1 TAB PO SCH (20:17)
[2020-08-18] MEDS: oxyCODONE/APAP 5/325 MG 1 TAB TAB PO PRN ×2 (01:28→05:58)
[2020-08-18] MEDS: SIMETHICONE 80 MG TAB.CHEW PO PRN (07:04)
== END 2020-08-18 13:30 | disposition home or self-care (01) | DRG 540 ==
LOC: UNDOADMOB 18:43 → MLD 18:43 → UNDODISOB 19:00 → PREOBSVTOIN 08-14 11:11 → MLD 08-16 05:27 → MFCC 08-16 10:10
PROVIDERS: ADMIT Obstetrics & Gynecology; ATTEND Obstetrics & Gynecology
PROC: 10D00Z1 Extraction of Products of Conception, Low, Open Approach (ICD-10-PCS; principal; 2020-08-16 08:00)
DX: O34.211 Maternal care for low transverse scar from previous cesarean delivery (principal); Z20.822 Contact with and (suspected) exposure to COVID-19; Z3A.38 38 weeks gestation of pregnancy; Z37.0 Single live birth
CPT/HCPCS: 36415; 51702; 80053; 81001; 85025; 86592; 86886; 86900; 86901; 87081; 87086; G0378; J0690; J1200; J1885; J2405; J2590; J7120; U0003

== ENCOUNTER 2021-04-18 16:22 | Emergency (ER) | payer MEDICAID, SELFPAY ==
[~2021-04-18] VITALS: Ht 157.5 cm; Wt 68.0 kg
[2021-04-18 17:35] VITALS: BP 103/65
[2021-04-18] MEDS ORDERED: NAPR-54 PO (18:23)
[2021-04-18] MEDS ORDERED: PROM118S5 PO (18:23)
--- NOTE | 2021-04-18 19:33 | NUR ---
Patient discharged with v/s stable. Written and verbal after care instructions given and explained. Patient alert, oriented and verbalized understanding of instructions. Ambulatory with steady gait. All questions addressed prior to discharge. ID band removed. Patient advised to follow up with PMD. Rx of NAPROXEN, PROMETHAZINE given. Patient educated on indication of medication including possible reaction and side effects. Opportunity to ask questions provided and answered.
--- NOTE | 2021-04-18 19:33 | NUR ---
NOVEL SWAB DONE. HANDED TO NUBIA HOOK TO WALK TO LAB
[2021-04-18 19:34] VITALS: BP 103/65
== END 2021-04-18 19:33 | disposition home or self-care (01) ==
LOC: MED 16:22
DX: R05.9 Cough, unspecified (principal); Z20.822 Contact with and (suspected) exposure to COVID-19; R09.89 Other specified symptoms and signs involving the circulatory and respiratory systems; Z79.899 Other long term (current) drug therapy
CPT/HCPCS: 99283; U0003

== ENCOUNTER 2021-10-10 10:15 | Emergency (ER) | payer MEDICAID ==
[~2021-10-10] VITALS: Ht 157.5 cm; Wt 78.2 kg
[~2021-10-10 10:15] MED LIST changes: +NAPR-54 PO; +PROM118S5 PO
[2021-10-10 10:20] VITALS: BP 105/68
--- NOTE | 2021-10-10 10:40 | NUR ---
25YO FEMALE PT C/O COLD SYMPTOMS . PT REPORTS NAUSEA AND VOMITING X5 THIS MORNING, DENIES BLOOD. ALSO REPORTS 8/10 THROBBING HEADACHE AND 8/10 CRAMPING ABDOMINAL PAIN X3 DAYS. PT PRESENTS WITH DRY COUGH AND STATES HAS BEEN CONSISTENT X3 DAYS.ABDOMEN NON TENDER TO TOUCH OR DISTENDED , ACTIVEX3. PT STATES TAKING IBUPROFEN , HAD NO RELIEF. STATES "FEVER" DUE TO FEELING "HOT" . DENIES DIARRHEA , CHEST PAIN OR SOB. DENIES ANYONE BEING SICK AT HOME. PT AAOX4, WARM TO TOUCH, RESPIRATIONS EVEN AND UNLABORED. NKA NHX
[2021-10-10] MEDS ORDERED: DICYCLOMINE HCL LIQUID 20 MG, ALUMINUM HYD/MAG/SIMETHICONE 30 ML, LIDOCAINE VISCOUS 2% ... PO ONE ×3 (11:00)
[2021-10-10] MEDS ORDERED: KETOROLAC 30 MG/ML VIAL IM ONE (11:00)
[2021-10-10] MEDS ORDERED: FAMOTIDINE 20 MG TAB PO ONE (11:00)
[2021-10-10 11:55] LABS: BASOPHILS % (AUTO) 0.4 % (0.0-2.0); EOSINOPHILS # (AUTO) 0.2 K/uL (0-0.4); EOSINOPHILS % (AUTO) 2.6 % (0.0-4.0); HEMATOCRIT 37.8 % (36-48); HEMOGLOBIN 12.2 g/dL (12.0-16.0); LYMPHOCYTES # (AUTO) 1.8 K/uL (2.5-16.5); LYMPHOCYTES % (AUTO) 22.5 % (20.5-51.1); MEAN CORPUSCULAR HEMOGLOBIN 25 pg (27-31); MEAN CORPUSCULAR HGB CONC 32 g/dL (33-37); MEAN CORPUSCULAR VOLUME 78.1 fL (80-94); MONOCYTES # (AUTO) 0.7 K/uL (0.8-1.0); NEUTROPHILS # (AUTO) 5.1 K/uL (1.8-7.7); NEUTROPHILS % (AUTO) 65.5 % (42.2-75.2); PLATELET COUNT (AUTO) 334 K/uL (140-450); RED BLOOD CELL COUNT(AUTO) 4.84 MIL/uL (4.20-5.40); RED CELL DISTRIBUTION WIDTH 17.2 % (11.6-13.7); WHITE BLOOD COUNT (AUTO) 7.8 K/uL (4.8-10.8)
[2021-10-10 11:58] LABS: ALBUMIN 3.6 g/dL (3.4-5.0); ANION GAP 8.6 (8-16); CARBON DIOXIDE 28.2 mmol/L (21-32); CREATININE 0.5 mg/dL (0.6-1.3); POTASSIUM 3.8 mmol/L (3.5-5.1); TOTAL BILIRUBIN 0.4 mg/dL (0.0-1.0)
[2021-10-10] MEDS ORDERED: KETOROLAC 30 MG/ML VIAL ONE (12:08)
[2021-10-10] MEDS ORDERED: FAMOTIDINE 20 MG TAB ONE (12:09)
[2021-10-10] MEDS ORDERED: ALUMINUM HYD/MAG/SIMETHICONE 30 ML UDC ONE ×2 (12:09→12:12)
[2021-10-10] MEDS ORDERED: DICYCLOMINE HCL LIQUID 10 MG/5 ML UDC ONE (12:14)
--- NOTE | 2021-10-10 12:24 | NUR ---
PT SWABBED FOR COVID(SHA) AND INFLU. WALKED TO LAB
[2021-10-10 12:38] LABS: APPEARANCE,URINE CLEAR (CLEAR); BILIRUBIN,URINE NEGATIVE (NEGATIVE); BLOOD, URINE NEGATIVE (NEGATIVE); COLOR,URINE YELLOW (YELLOW); LEUKOCYTE ESTERASE ,URINE NEGATIVE (NEGATIVE); NITRITE, URINE NEGATIVE (NEGATIVE); PH,URINE 5.5 (5.0-9.0); UGLUCOSE NEGATIVE (NEGATIVE)
[2021-10-10] MEDS ORDERED: FAMO-90 PO (13:35)
[2021-10-10] MEDS ORDERED: IBUP-2213 PO (13:35)
[2021-10-10] MEDS ORDERED: BEN10 PO (13:35)
[2021-10-10 13:40] VITALS: BP 92/64
--- NOTE | 2021-10-10 13:45 | NUR ---
Patient discharged with v/s stable. Written and verbal after care instructions FOR VIRAL ILLNESS given and explained. Patient alert, oriented and verbalized understanding of instructions. Ambulatory with steady gait. All questions addressed prior to discharge. ID band removed. Patient advised to follow up with PMD. Rx of BENTLY, PEPCID AND IBUPROFEN given.Opportunity to ask questions provided and answered.
--- NOTE | 2021-10-10 14:37 | NUR ---
Chart checked and completed. The patient's care was reviewed and supervised by Junie Tyler RN.
== END 2021-10-10 13:45 | disposition home or self-care (01) ==
LOC: MED 10:15
DX: B34.9 Viral infection, unspecified (principal); Z20.822 Contact with and (suspected) exposure to COVID-19; K29.70 Gastritis, unspecified, without bleeding; Z79.1 Long term (current) use of non-steroidal anti-inflammatories (NSAID); Z79.899 Other long term (current) drug therapy
CPT/HCPCS: 36415; 80053; 81003; 81025; 82150; 83690; 85025; 87426; 87804; 96372; 99285; J1885

== ENCOUNTER 2022-01-26 08:44 | Emergency (ER) | payer MEDICAID ==
[~2022-01-26] VITALS: Ht 147.3 cm; Wt 83.2 kg
[~2022-01-26 08:44] MED LIST changes: +BEN10 PO; +FAMO-90 PO; +IBUP-2213 PO
[2022-01-26 08:53] VITALS: BP 109/60
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
[2022-01-26] MEDS ORDERED: ACETAMINOPHEN EXTRA STRENGTH 500 MG TAB PO ONE (09:30)
[2022-01-26] MEDS ORDERED: METOCLOPRAMIDE 10 MG TAB PO ONE (09:35)
[2022-01-26] MEDS ORDERED: METOCLOPRAMIDE 10 MG TAB ONE (09:38)
[2022-01-26 10:03] LABS: BASOPHILS # (AUTO) 0.1 K/uL (0.00-0.22); EOSINOPHILS # (AUTO) 0.1 K/uL (0-0.4); EOSINOPHILS % (AUTO) 1.4 % (0.0-4.0); HEMOGLOBIN 12.9 g/dL (12.0-16.0); LYMPHOCYTES # (AUTO) 1.6 K/uL (2.5-16.5); LYMPHOCYTES % (AUTO) 23.5 % (20.5-51.1); MEAN CORPUSCULAR HEMOGLOBIN 29 pg (27-31); MEAN CORPUSCULAR HGB CONC 34 g/dL (33-37); MEAN CORPUSCULAR VOLUME 85.9 fL (80-94); MONOCYTES # (AUTO) 0.4 K/uL (0.8-1.0); NEUTROPHILS # (AUTO) 4.8 K/uL (1.8-7.7); NEUTROPHILS % (AUTO) 68.1 % (42.2-75.2); PLATELET COUNT (AUTO) 305 K/uL (140-450); RED BLOOD CELL COUNT(AUTO) 4.43 MIL/uL (4.20-5.40); RED CELL DISTRIBUTION WIDTH 18.2 % (11.6-13.7)
--- NOTE | 2022-01-26 10:06 | NUR ---
US AT BEDSIDE
[2022-01-26 10:33] LABS: ALBUMIN 3.3 g/dL (3.4-5.0); CARBON DIOXIDE 23.9 mmol/L (21-32); CREATININE 0.4 mg/dL (0.6-1.3); POTASSIUM 3.9 mmol/L (3.5-5.1); TOTAL BILIRUBIN 0.2 mg/dL (0.0-1.0)
[2022-01-26 12:29] VITALS: BP 126/65
[2022-01-26] MEDS ORDERED: ACET-10509 PO (12:57)
--- NOTE | 2022-01-26 13:05 | NUR ---
Patient discharged with v/s stable. Written and verbal after care instructions given and explained. Patient verbalized understanding. Ambulatory with steady gait. All questions addressed prior to discharge. Advised to follow up with PMD.
== END 2022-01-26 13:05 | disposition home or self-care (01) ==
LOC: MED 08:44
DX: O26.891 Other specified pregnancy related conditions, first trimester (principal); I10 Essential (primary) hypertension; Z3A.01 Less than 8 weeks gestation of pregnancy; Z79.899 Other long term (current) drug therapy
CPT/HCPCS: 36415; 76801; 80053; 81002; 81025; 83690; 84702; 85025; 86900; 86901; 99284; J8597; Q0092